=== PATIENT | male | born 1980 | race African-American/Black ===

== ENCOUNTER 2017-11-27 18:56 | Emergency (ER) | payer OTHER ==
[2017-11-27 19:06] VITALS: BP 123/74; PULSE 70; TEMP 98.1; BMI 29.3
--- NOTE | 2017-11-27 20:14 | PDOC ---
History of Present Illness - General Chief Complaint: Eye Problem Stated Complaint: EYE PROBLEM Time Seen by Provider: 11/27/17 19:11 Past History - Past Medical History Allergies/Adverse Reactions: Allergies Allergy/AdvReac Type Severity Reaction Status Date / Time No Known Allergies Allergy Verified 11/27/17 19:03 Home Medications: Ambulatory Orders Loratadine [Claritin -] 10 mg PO DAILY #30 tablet 11/27/17 Ofloxacin 0.3% Ophth Soln [Ocuflox -] 1 drop OP Q4H #100 drops 11/27/17 COPD: No Other medical history: Pt denies - Suicide/Smoking/Psychosocial Hx Smoking History: Never smoked Have you smoked in the past 12 months: No Information on smoking cessation initiated: No Hx Alcohol Use: No Drug/Substance Use Hx: No Substance Use Type: None *Physical Exam - Vital Signs Last Vital Signs Temp Pulse Resp BP Pulse Ox 98.1 F 70 20 123/74 97 11/27/17 19:03 11/27/17 19:03 11/27/17 19:03 11/27/17 19:03 11/27/17 19:03 *DC/Admit/Observation/Transfer Diagnosis at time of Disposition: Conjunctivitis Qualifiers: Conjunctivitis type: unspecified Laterality: bilateral Qualified Code(s): H10.9 - Unspecified conjunctivitis - Discharge Dispostion Disposition: HOME Condition at time of disposition: Stable Admit: No - Referrals Referrals: Aleks Bryant MD [Staff Physician] - - Patient Instructions Printed Discharge Instructions: DI for Conjunctivitis Additional Instructions: You have conjunctivitis of your eyes. Please use the eyedrops as directed. please take the Claritin once daily. Continue her amoxicillin as previously prescribed. Please follow up with her primary care doctor this week. Return to the emergency department if you have changes in her vision, fevers, chills, or have any changes in your symptoms. - Post Discharge Activity Forms/Work/School Notes: Back to Work
== END 2017-11-27 20:34 | disposition home or self-care (01) ==
LOC: JERFT 18:56
DX: H10.33 Unspecified acute conjunctivitis, bilateral (principal)
CPT/HCPCS: 99281-25